=== PATIENT | male | born 1950 | race Caucasian/White ===

== ENCOUNTER 2023-10-18 10:25 | Emergency (ER) | payer MEDICARE, OTHER, SELFPAY ==
[2023-10-18 10:27] VITALS: BP 127/82
[2023-10-18 11:13] VITALS: BP 139/98; BMI 24.6
[2023-10-18 11:23] LABS: % Basophils 0.3 % (0-2); % Eosinophils 1.7 % (0-6); % Immature Granulocytes 0.2 % (0-0.5); % Lymphocytes 25.5 % (20.5-51.1); % Monocytes 10.3 % (1.7-9.3); Absolute Eosinophils 0.1 10^3/uL (0-0.7); Absolute Lymphocytes 1.5 10^3/uL (1.2-3.4); Absolute Monocytes 0.6 10^3/uL (0.1-0.6); Absolute Neutrophils 3.7 10^3/uL (1.4-6.5); Hematocrit 41.6 % (39.0-52.0); Hemoglobin 14.8 g/dL (13.0-18.0); Mean Corp Hgb Conc. 35.6 g/dL (33.0-37.0); Mean Corpuscular Hgb 29.8 pg (27.0-31.0); Mean Corpuscular Volume 83.9 fL (80.0-94.0); Mean Platelet Volume 9.8 fL (7.4-10.4); Nucleated Red Blood Cells % 0 % (-); Platelet Count 244 10^3/uL (130-400); Red Blood Cell Count 4.96 10^6/uL (4.70-6.10)
[2023-10-18 11:39] LABS: ALT (SGPT) 24 U/L (0-50); AST (SGOT) 29 U/L (17-59); Albumin 4.4 g/dl (3.5-5.0); Alkaline Phosphatase 50 U/L (38-126); Blood Urea Nitrogen 20 mg/dl (9-20); Calcium 9.6 mg/dl (8.4-10.2); Carbon Dioxide 23 mmol/L (22-30); Chloride 107 mmol/L (98-107); Estimated Creatinine Clearance 60 ml/min; Glucose 106 mg/dl (70-99); Lipase 81 U/L (23-300); Potassium 4.4 mmol/L (3.5-5.1); Sodium 138 mmol/L (135-145); Total Bilirubin 1.6 mg/dl (0.2-1.3); Total Protein 7.4 g/dl (6.3-8.2); eGFR > 60.00
--- NOTE | 2023-10-18 12:22 | ED.GENMED ---
History of Present Illness
General
Chief Complaint: Abdominal Pain
Source: patient and spouse
Exam Limitations: none
Time Seen by Provider: 10/18/23 11:06
Nursing documentation reviewed up to this point in time: agreed with
Travel History
Have you had any contact with someone who has COVID-19?: No
Do you have any symptoms of coronavirus? Fever > 100 degrees, chills, cough, shortness of breath, sore throat, loss of taste or smell, muscle aches, or headache?: No
History of Present Illness
History of Present Illness:
73-year-old male with a past medical history of anxiety, BPH who presents to the emergency department for evaluation of abdominal pain. Patient reports onset of symptoms 5 days ago they have been essentially constant since that time--they resolved
for 24 hours yesterday before returning this morning. He reports pain in the epigastric region that does not radiate. Associated with nausea and a few episodes of vomiting over the past few days. He says he has had frequent burping/belching. He
denies any diarrhea or constipation, last bowel movement was this morning and normal. He has not had any dysuria, hematuria, change in urinary frequency. Denies any back or flank pain. He denies any chest pain or shortness of breath. He denies
similar symptoms in the past. He denies any prior history of abdominal surgeries.
Review of Systems
Review of Systems
All Other Systems: ROS reviewed and negative except as documented in HPI and ROS
Constitutional: Denies fever or chills
Respiratory: Denies cough or trouble breathing
Cardiac: Denies chest pain or palpitations
ABD/GI: Reports abdominal pain, nausea and vomiting; Denies diarrhea or constipated
: Denies dysuria, frequency, flank pain or bleeding
Musculoskeletal: Denies neck pain or back pain
Neurological: Denies dizzy, headache, weakness or numbness
Phy Exam
Physical Exam
Physical Exam:
General: Awake, alert, oriented x3; no acute distress
Head: Normocephalic, atraumatic
Eyes: Conjunctiva normal, sclera anicteric
Throat: Airway intact, handling secretions
Neck: Trachea midline, supple without meningismus
Lungs: Clear to auscultation bilaterally, no wheezing, rales, rhonchi
Heart: Regular rate and rhythm, no murmurs, gallops, or rubs
Abd: Soft, non distended, minimally tender in the epigastric region
Back: No CVA tenderness
Neuro: Cranial nerves grossly intact, speech fluid
Skin: no rash
Extremities: No edema in extremities, equal pulses in all extremities
Scores
Heart Failure Risk
Heart Failure Risk Score: Not Applicable
Heart Score for Chest Pain Patients
STEMI patient?: Not applicable
Withdrawal Assessment of Alcohol
Withdrawal Assessment Completed?: Not applicable
Course
Orders/Labs/Results
Orders:
Orders
10/18/23 11:10
CT Abd/pelvis W Iv Cont Urgent
Comment:
Reason For Exam: epigastric pain with nausea and vomiting
Urinalysis Reflex To Culture Urgent
10/18/23 11:15
Complete Blood Count/With Diff Urgent
Comprehensive Metabolic Panel Urgent
Lipase Urgent
10/18/23 12:23
Electrocardiogram (*1) Urgent
Reason for Study: Abdominal Pain
EKG- Treatment ONCE
10/18/23 12:31
Troponin I Urgent
Abnormal Lab Results
10/18/23
11:15
Monocytes % 10.3 H %
(1.7-9.3)
Glucose 106 H mg/dl
(70-99)
Total Bilirubin 1.6 H mg/dl
(0.2-1.3)
10/18/23 11:15
10/18/23 11:15
Vital Signs
Initial and Last Documented VS:
Initial Vital Signs
Temp Pulse Resp BP Pulse Ox
36.6 C 85 22 127/82 99
10/18/23 10:27 10/18/23 10:27 10/18/23 10:27 10/18/23 10:27 10/18/23 10:27
Last Documented Vital Signs
Temp Pulse Resp BP Pulse Ox
36.6 C 70 16 139/98 98
10/18/23 10:27 10/18/23 11:13 10/18/23 11:13 10/18/23 11:13 10/18/23 11:13
MDM/Problems Addressed
Differential Diagnosis Includes:
Gastritis, PUD, cholelithiasis, cholecystitis, pancreatitis, enteritis, nephrolithiasis less likely, anginal equivalent less likely
MDM/Problems Addressed:
73-year-old male presents for evaluation of epigastric abdominal pain associate with nausea and vomiting and increased belching over the past few days. His vital signs are normal. Exam as above. Plan to place an IV check labs including a CBC and
a CMP, lipase. Will check EKG and troponin in an abundance of caution although low suspicion for angina/ACS. Will send for a CT of the abdomen pelvis. Will monitor closely reassess after the above.
Initial labs reviewed: CBC and CMP unremarkable, lipase normal. Awaiting results of CT and troponin.
Patient's troponin is undetectable and with symptoms for the past few days consistently this is sufficient to rule out acute MO. Awaiting results of CT.
CT abdomen pelvis shows signs concerning for malignancy�solid mass adjacent to the right small bowel mesentery. He has no known history of cancer. Informed patient and of this concerning finding. Discussed with oncology to facilitate
follow-up they will call first thing Saturday morning to make an appointment. I question whether this is truly causing the symptoms or simply an incidental finding�he does have a small hiatal hernia which would predispose to GERD symptoms. He
actually has an appointment scheduled with a GI doctor on Saturday and I encouraged him to keep this. Will start him on a PPI and prescribe Zofran as needed for nausea. Patient and feel comfortable with this plan. We spoke about return
precautions and all questions were answered.
*Radiology
Radiology exam reviewed: radiology read reviewed
*Pulse Oximetry
Patient hypoxic: no
*EKG
Interpreted by ED Provider?: Yes
Heart Rate: 59
Rate: bradycardiac
Rhythm: sinus
[place]: normal axis
Interval: normal interval
QRS Pattern: normal QRS
Ischemia: no ischemia
*Critical Care Note
Total Time (30-74mins, 75-104mins- exclusive of procedures): Not Applicable
Data Reviewed
Source: patient and spouse
ED Attending Note
-
Portions of this chart may have been created with voice recognition software.� Occasional wrong word or��sound alike� substitutions may have occurred due to the inherent limitations of voice recognition software.
Discharge Plan
Departure
Patient Disposition: Home (Routine Discharge)
Date of Disposition: 10/18/23
Time of Disposition: 14:02
Patient with high blood pressure during this ER visit?: No
Discharge Problem:
Mesenteric mass, Abdominal pain, Nausea & vomiting
Instructions: Abdominal Pain, Adult ED, Nausea and Vomiting, Adult ED
Prescriptions:
New
ondansetron 4 mg tablet,disintegrating
4 mg PO TIDPRN PRN (Reason: nausea/vomiting) Qty: 20 0RF
pantoprazole [Protonix] 40 mg tablet,delayed release (DR/EC)
40 mg PO DAILY Qty: 30 0RF
Referrals:
Roby Rodriguez MD [Family Provider] -
Andrey Sandoval MD [Active] - Call in 1-3 days for appt (Oncologist)
Activity Restrictions/Additional Instructions:
You should follow-up as scheduled with your sap business objects consultant on Saturday. You should receive a call from the oncologist on Saturday to schedule an appointment but if you do not hear from them by them by around noon on Saturday you should call the
number provided. You can take Zofran as needed for nausea. You should take the pantoprazole as prescribed which should help with your belching and abdominal discomfort. You should try to stick to a bland diet to help with your pain and nausea.
If you feel things are worsening you should return to the emergency room.
Thank you for visiting the Emergency Department at [facility].
1. Please schedule a follow up appointment as directed. Call first thing tomorrow morning to make an appointment.
2. If indicated, please take your medications as instructed and indicated on discharge paperwork.
3. If any of your symptoms do not improve, or persist, or become more severe within 6-12 hours, please return to the emergency department for further care.
4. Please return to the emergency department if you develop a headache, neck pain/stiffness, fever greater than 100.4F, chest pain, shortness of breath, persistent nausea, vomiting, slurred speech, difficulty walking, numbness/tingling, weakness,
signs of infection or any other symptoms that are worrisome to you.
Please call [phone] if you have any questions.
Interventions
Interventions:
*Risk Screen - Suicide Last Done: 10/18/23 11:12
*General Assessment Last Done: 10/18/23 10:31
*Neglect/Abuse Screening Last Done: 10/18/23 11:12
ED- Fall Risk Assessment Last Done: 10/18/23 11:12
*ED COVID-19 Vaccine History Last Done: 10/18/23 10:31
YY-Zwwoqs-Yzuwswtaqv Assessment Last Done: 10/18/23 11:12
Discharge Date and Time
Print Language: SINGAPOREAN
[2023-10-18 13:03] LABS: Troponin I < 0.012 ng/ml
== END 2023-10-18 14:32 | disposition home or self-care (01) ==
LOC: EMR 10:25
PROVIDERS: EMERGENCY PHYSICIAN Emergency Medicine; FAMILY PHYSICIAN Family Medicine
DX: K63.9 Disease of intestine, unspecified (principal); R10.13 Epigastric pain; R11.2 Nausea with vomiting, unspecified; F41.9 Anxiety disorder, unspecified; N40.0 Benign prostatic hyperplasia without lower urinary tract symptoms
CPT/HCPCS: 99285; 74177; 80053; 83690; 84484; 85025; 93005; Q9967

== ENCOUNTER → 2023-10-29 13:33 | Outpatient (REF) | payer MEDICARE, OTHER, SELFPAY | LOC: RAD 13:33 | PROVIDERS: ATTENDING PHYSICIAN Internal Medicine Hematology & Oncology; FAMILY PHYSICIAN Family Medicine | DX: R93.89 Abnormal findings on diagnostic imaging of other specified body structures (principal) | CPT/HCPCS: 71260; Q9967 ==

== ENCOUNTER 2023-11-08 10:09 | Inpatient (IN) | payer MEDICARE, OTHER, SELFPAY ==
--- NOTE | 2023-11-04 14:00 | PTCARENOTE ---
Dr. Palacios reviewed abnormal EKG from 10/18/23 that's to be used for upcoming surgery. He stated pt will need a cardiac clearance. Fiona in Dr. Hurtado's office made aware.
[2023-11-08] VITALS (17 sets, daily range): BP systolic 93–146; BP diastolic 60–88; BMI 25.2
--- NOTE | 2023-11-08 10:50 | CHAP ---
Pre-surgery Emotional and Spiritual support provided. Prayers shared. Request for Holy Communion on Saturday will be placed on our list.
[2023-11-08] MEDS: ENTEREG 12 MG PO (10:51)
[2023-11-08] MEDS: NORMOSOL-R 1000 IV (10:51)
[2023-11-08] MEDS: TYLENOL 1000 MG PO (10:51)
--- NOTE | 2023-11-08 11:26 | W.SUR.PREOP ---
Pre-Operative Surgical Note
-
I have examined this patient prior to the performance of the scheduled procedure.
The patient's condition is unchanged from the time of the current History and
Physical and the patient is able to undergo the scheduled procedure.
--- NOTE | 2023-11-08 16:27 | SUR.PHASEI ---
REc'd sleepy in bed with HOB elevated midfowlers, oriented x 3 by RN, pt very sleepy, airway removed jeanette well, now loudly snoring
--- NOTE | 2023-11-08 16:32 | SUR.PHASEI ---
Assessment unchanged, argueta to BSD, cl nestor urine
--- NOTE | 2023-11-08 16:34 | W.IMMPOSTOP ---
Addendum entered and electronically signed by Pavan Hurtado MD 11/08/23 17:08:
The assistance of Esperanza Vega was required due to the complexity of the procedure. During the procedure Esperanza Vega assisted with retraction, resection, and closure of the incision sites.
#[id number]
Original Note:
Surgical Immed Post Op Note
-
Primary Surgeon: Genesis
Assisting Surgeon: Esperanza Vega PA-c
Pre-op Diagnosis: Mesenteric Mass
Post-op Diagnosis: TI mass with mesenteric mass
Procedure Performed: Laparoscopic Right Hemicolectomy
Anesthesia Type: GETA + 0.25% Marcaine
Specimen / Cultures: right hemicolectomy
Estimated Blood Loss: 50mL
Complications: none immediate
Operative Findings: Small bowel mass palpated/identified at the terminal ileum. Mesenteric mass located at base of ileocolic pedicle with surrounding desmoplastic reaction adjacent to 3rd portion of the duodenum but grossly negative margins
obtained with resection. No additional adenopathy or masses identifies. High ligation of IC pedicle taken with endo SHAUNA stapler. Stapled side to side ileo colonic anastomosis at hepatic flexure.
--- NOTE | 2023-11-08 16:47 | SUR.PHASEI ---
Arouses to name, re oriented, vss, jeanette n/c well
--- NOTE | 2023-11-08 17:02 | SUR.PHASEI ---
Drowsy, vss, awaiting room assignment
--- NOTE | 2023-11-08 17:21 | SUR.PHASEI ---
Arouses easily, vss, denies c/o
--- NOTE | 2023-11-08 17:32 | SUR.PHASEI ---
More alert, denies c/o, vss, awaiting room, Dr Mendez in
[2023-11-08] MEDS: NSS 1000 IV (20:32)
[2023-11-08] MEDS: REFRESH EYE DROPS (PF) 1 DROPS OPHTH (20:33)
[2023-11-09] MEDS: OFIRMEV 100 IV ×4 (00:01→20:54)
[2023-11-09] MEDS: NSS 1000 IV (03:18)
[2023-11-09 03:30] VITALS: BP 125/72
[2023-11-09 07:00] VITALS: BP 117/70
[2023-11-09 08:10] LABS: Hemoglobin 11.8 g/dL (13.0-18.0); Mean Corp Hgb Conc. 32.8 g/dL (33.0-37.0); Mean Corpuscular Hgb 29.4 pg (27.0-31.0); Mean Corpuscular Volume 89.6 fL (80.0-94.0); Mean Platelet Volume 9.8 fL (7.4-10.4); Platelet Count 190 10^3/uL (130-400); Red Blood Cell Count 4.02 10^6/uL (4.70-6.10); Red Cell Dist. Width 13.1 % (11.5-14.5); White Blood Cell Count 9.5 10^3/uL (4.8-10.8)
--- NOTE | 2023-11-09 08:25 | W.PN.GS2 ---
Today's Communication / Plan
-
Clears, DC Craft, out of bed and ambulate today.
Assessment / Plan
-
This is a 73-year-old male status post a laparoscopic right hemicolectomy for mass at the terminal ileum with an associated mesenteric mass. Doing well, expected postoperative course.
Okay for clears. Will will await return of bowel function before advancing diet.
Will DC Craft catheter today.
On Protonix, Lovenox daily for prophylaxis.
Entereg, Zofran
Tamsulosin.
Tylenol and Dilaudid for pain control
Time Spent
Total Time Spent with Patient (in minutes): 10
Subjective Data
-
Date of Service: November 09, 2023
Interval Events:
No acute events overnight. Slept well. Pain Controlled. Denies Nausea/Vomiting, -bowel function.
Objective Data
-
Intake and Output
11/08/23 11/09/23 11/10/23
06:59 06:59 06:59
Intake Total 1640 / 1640
Output Total 1870 / 1870
Balance -230 / -230
Intake:
IV fluids (Total) 1640 / 1640
Normosol 200 / 200
Output:
Urine, Craft 1500 / 1500
Urine, Voided 370 / 370
Vital Signs
Temp Pulse Resp BP Pulse Ox
98.5 F 73 16 125/72 98
11/09/23 03:30 11/09/23 03:30 11/09/23 03:30 11/09/23 03:30 11/09/23 03:30
Lab Results
11/09/23 07:23
Physical Exam
-
GENERAL/NEURO: Awake, Alert, no distress
CHEST: Unlabored breathing on RA
ABDOMEN: Soft, Non-Tender, Non-Distended, incisions clean dry and intact.
[2023-11-09 08:27] LABS: Blood Urea Nitrogen 20 mg/dl (9-20); Calcium 7.8 mg/dl (8.4-10.2); Carbon Dioxide 24 mmol/L (22-30); Chloride 106 mmol/L (98-107); Estimated Creatinine Clearance 63 ml/min; Glucose 115 mg/dl (70-99); Sodium 134 mmol/L (135-145); eGFR > 60.00
[2023-11-09] MEDS: ENTEREG 12 MG PO ×2 (09:54→20:15)
[2023-11-09] MEDS: FLOMAX 0.400000000000000022 MG PO (09:54)
[2023-11-09] MEDS: LEXAPRO 20 MG PO (09:54)
[2023-11-09] MEDS: PROTONIX IV 40 MG IV (09:55)
[2023-11-09] MEDS: NSS (PRESERVATIVE FREE) 10 ML IV (09:55)
--- NOTE | 2023-11-09 11:10 | CM ---
CM met with pt and spouse bedside, neighbors were also bedside
They reside in a [place] with 7-8 [place]
Pt sleeps on the 1st floor in a recline for the past few years
13 steps up to full bath
Pt notes independence with his ADLs
Denies use of DMEs and denies food insecurities
PCP- Roby Rodriguez
Rx- [facility], Jamie
POD#1 lap R. hemicolectomy
CM will continue to follow pt for dc planning
Discharge Disposition- home, no needs anticipated
[2023-11-09 15:22] VITALS: BP 122/75
[2023-11-09] MEDS: NSS IV ×2 (17:19→17:21)
[2023-11-09] MEDS: LOVENOX 40 MG SC (18:38)
--- NOTE | 2023-11-09 19:30 | PTCARENOTE ---
IV maintenance fluids d/c during dayshift due to pt request. Pt took flomax & the N/S was going at 120mL/hr causing frequent urination. I asked pt about resuming IV fluids, but he did not want to he said it was disruptive with vistors & would make
it difficult to sleep because of the need for frequent urination. Pt on Clear Diet & tolerating it well.
[2023-11-09 23:30] VITALS: BP 118/73
[2023-11-10] MEDS: OFIRMEV 100 IV (04:40)
[2023-11-10 05:53] LABS: Hematocrit 35.8 % (39.0-52.0); Hemoglobin 12.2 g/dL (13.0-18.0); Mean Corp Hgb Conc. 34.1 g/dL (33.0-37.0); Mean Corpuscular Volume 88.2 fL (80.0-94.0); Mean Platelet Volume 10.2 fL (7.4-10.4); Platelet Count 179 10^3/uL (130-400); Red Blood Cell Count 4.06 10^6/uL (4.70-6.10); Red Cell Dist. Width 13.2 % (11.5-14.5); White Blood Cell Count 8.5 10^3/uL (4.8-10.8)
[2023-11-10 06:17] LABS: Blood Urea Nitrogen 16 mg/dl (9-20); Calcium 8.4 mg/dl (8.4-10.2); Carbon Dioxide 25 mmol/L (22-30); Chloride 107 mmol/L (98-107); Estimated Creatinine Clearance 69 ml/min; Glucose 99 mg/dl (70-99); Potassium 4.5 mmol/L (3.5-5.1); Sodium 138 mmol/L (135-145); eGFR > 60.00
[2023-11-10 07:20] VITALS: BP 118/75
[2023-11-10] MEDS: NSS (PRESERVATIVE FREE) 10 ML IV (09:14)
[2023-11-10] MEDS: PROTONIX IV 40 MG IV (09:14)
[2023-11-10] MEDS: FLOMAX 0.400000000000000022 MG PO (09:14)
[2023-11-10] MEDS: LEXAPRO 20 MG PO (09:15)
[2023-11-10] MEDS: ENTEREG 12 MG PO ×2 (09:15→20:41)
[2023-11-10] MEDS: TYLENOL 1000 MG PO (09:15)
--- NOTE | 2023-11-10 11:03 | W.PN.GS2 ---
Today's Communication / Plan
-
Dispo planning
Assessment / Plan
-
This is a 73-year-old male status post a laparoscopic right hemicolectomy for mass at the terminal ileum with an associated mesenteric mass. Doing well, expected postoperative course.
Will DC home later today if he tolerates a low residue diet.
Time Spent
Total Time Spent with Patient (in minutes): 10
Subjective Data
-
Date of Service: November 10, 2023
Interval Events:
No acute events overnight. Slept well. Pain Controlled. Denies Nausea/Vomiting, +bowel function. Tolerating diet.
Objective Data
-
Intake and Output
11/09/23 11/10/23 11/11/23
06:59 06:59 06:59
Intake Total 1640 / 1640 1280 / 1280
Output Total 1870 / 1870 2225 / 2225
Balance -230 / -230 -945 / -945
Intake:
Oral fluids 1280 / 1280
IV fluids (Total) 1640 / 1640
Normosol 200 / 200
Output:
Urine, Craft 1500 / 1500
Urine, Voided 370 / 370 2225 / 2225
Vital Signs
Temp Pulse Resp BP Pulse Ox
98.0 F 77 17 118/75 97
11/10/23 07:20 11/10/23 07:20 11/10/23 07:20 11/10/23 07:20 11/10/23 07:20
Lab Results
11/10/23 05:24
11/10/23 05:24
Calcium 8.4 mg/dl (8.4-10.2) 11/10/23 05:24
Physical Exam
-
GENERAL/NEURO: Awake, Alert, no distress
CHEST: Unlabored breathing on RA
ABDOMEN: Soft, Non-Tender, Non-Distended, incisions clean dry and intact.
--- NOTE | 2023-11-10 11:49 | CM ---
CM reviewed chart- anticipate dc later today pending toleration of diet
Bedside meeting with pt- he notes he does not feel ready for dc today
IMM verbally completed- copy provided
Discharge Dosposition- home, no needs- family transport
[2023-11-10] MEDS: TORADOL 10 MG IV (15:02)
[2023-11-10 15:05] VITALS: BP 143/88
--- NOTE | 2023-11-10 16:26 | W.PN.UPDATE ---
Update Note
Progress Note Update
S: Patient seen and examined at bedside with family. Questions addresssed
B: Some worsening bloating after eating LRD with belching. Urinary frequency improved. Pain not worsened, manageable. Has been able to walk in the hallways. Still passing flatus.
A/R: Diet changed full liquids, he would like to continue having sherbet, urged patient to go slowly. If nausea/vomiting develop will make NPO.
[2023-11-10] MEDS: LOVENOX 40 MG SC (16:58)
--- NOTE | 2023-11-10 22:00 | PTCARENOTE ---
pt had 2 small, liquid bloody bm. will monitor
[2023-11-10] MEDS: ZOFRAN 4 MG IV (22:39)
[2023-11-10 22:50] VITALS: BP 154/92
--- NOTE | 2023-11-10 22:50 | PTCARENOTE ---
pt having bloody watery stools x3. 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 pt became nauseas and vomited small amount. administered prn zofran- see mar. pt felt a little diaphoretic with the vomiting but said it subsided. pt resting in bed states he feels better.
vss.
[2023-11-11] MEDS: TORADOL 10 MG IV (06:01)
[2023-11-11 06:04] LABS: Hematocrit 35.1 % (39.0-52.0)
[2023-11-11 07:10] VITALS: BP 107/71
[2023-11-11] MEDS: FLOMAX 0.400000000000000022 MG PO (08:33)
[2023-11-11] MEDS: PROTONIX IV 40 MG IV (08:34)
[2023-11-11] MEDS: NSS (PRESERVATIVE FREE) 10 ML IV (08:34)
[2023-11-11] MEDS: LEXAPRO 20 MG PO (08:34)
--- NOTE | 2023-11-11 09:48 | W.PN.GS2 ---
Today's Communication / Plan
-
NPO/IVF
Assessment / Plan
-
73-year-old male POD #3 laparoscopic right hemicolectomy for mass at the terminal ileum with an associated mesenteric mass.
AFVSS
h/h stable
?developing ileus, +n/v/distention. bloody stool x1 this am, still passing flatus
--Keep NPO with sips of clears
--If vomiting recurs/persists will place NGT
--IVF while NPO
--Multimodal analgesics
--OOB/Ambulate
--c/w PO home meds
--VTE ppx with lovenox/scd's
Subjective Data
-
Date of Service: November 11, 2023
Patient seen and examined at bedside with Dr. Singh. Vomiting and nausea overnight. Feels a little better today. Passed a bloody BM with flatus. No worsening pain.
Objective Data
-
Intake and Output
11/10/23 11/11/23 11/12/23
06:59 06:59 06:59
Intake Total 1280 / 1280 1120 / 1120
Output Total 2225 / 2225 500 / 500
Balance -945 / -945 620 / 620
Intake:
Oral fluids 1280 / 1280 1120 / 1120
Output:
Emesis 100 / 100
Urine, Voided 2225 / 2225 400 / 400
Other:
Number of approximated MODERATE 4
amounts of urine
Number of unmeasured liquid
stools
Rectum 3
Vital Signs
Temp Pulse Resp BP Pulse Ox
97.8 F 71 18 107/71 97
11/11/23 07:10 11/11/23 07:10 11/11/23 07:10 11/11/23 07:10 11/11/23 07:10
Lab Results
11/11/23 05:57
11/10/23 05:24
Calcium 8.4 mg/dl (8.4-10.2) 11/10/23 05:24
Physical Exam
-
GENERAL/NEURO: Awake, Alert, no distress
CHEST: Unlabored breathing on RA
ABDOMEN: Soft, Incisional tenderness, moderately distended, incisions clean dry and intact.
[2023-11-11] MEDS: ENTEREG PO (09:58)
[2023-11-11] MEDS: NORMOSOL-R 1000 IV ×2 (10:43→21:52)
[2023-11-11 14:06] VITALS: BP 109/68
--- NOTE | 2023-11-11 14:07 | PTCARENOTE ---
Pt's came out to nurses station and told RN that her felt dizzy. RN went in to take patients vital signs and pt denied he felt dizzy. Bp was 109/68 and HR was 75. Pt told RN he was on his 3rd bloody bowel movement. RN let SALES DEPARTMENT SUPERVISOR know and
now h/h is ordered.
[2023-11-11 14:30] VITALS: BP 94/61
[2023-11-11 14:31] VITALS: BP 77/51
[2023-11-11 15:16] VITALS: BP 105/70
[2023-11-11 15:16] LABS: Hematocrit 33.1 % (39.0-52.0); Hemoglobin 11.3 g/dL (13.0-18.0); Mean Corp Hgb Conc. 34.1 g/dL (33.0-37.0); Mean Corpuscular Hgb 29.8 pg (27.0-31.0); Mean Corpuscular Volume 87.3 fL (80.0-94.0); Platelet Count 205 10^3/uL (130-400); Red Blood Cell Count 3.79 10^6/uL (4.70-6.10); Red Cell Dist. Width 13.2 % (11.5-14.5); White Blood Cell Count 7.3 10^3/uL (4.8-10.8)
[2023-11-11 15:36] LABS: Blood Urea Nitrogen 21 mg/dl (9-20); Calcium 8.9 mg/dl (8.4-10.2); Carbon Dioxide 25 mmol/L (22-30); Chloride 106 mmol/L (98-107); Estimated Creatinine Clearance 49 ml/min; Glucose 106 mg/dl (70-99); Potassium 4.3 mmol/L (3.5-5.1); Sodium 137 mmol/L (135-145); eGFR 53.07
--- NOTE | 2023-11-11 15:53 | CM ---
NPO,sips of clears, IVF, NGT if vomiting persists. Discharge Plan of Care: Anticipate Home with no needs.
--- NOTE | 2023-11-11 16:05 | W.PN.UPDATE ---
Update Note
Progress Note Update
S/B: Notified by nursing that pt passing bloody stools x3 (small), dizziness with ambulation and noted postural hypotension (94/61 sitting to 77/51 with standing)
A: Some bloody stools expected post op. Mild acute anemia noted, but not a significant drop. N/V resolved with bowel rest. Distention improving.
P: Will hold Lovenox and Toradol. Given postural hypotension, increased IVF to 125ml/hr. Continue NPO with sips. Await more robust return of bowel function (flatus) prior to advancing diet. Check AM labs.
--- NOTE | 2023-11-11 17:25 | PTCARENOTE ---
Patient re-check h/h stable. Vital signs sitting to standing are orthostatic and PATTERN KEEPER was made aware. Pt instructed to call for RN/PCT to walk with him from now on given low blood pressure when standing. IVF increased to 125 from 75.
[2023-11-11 23:00] VITALS: BP 99/66
[2023-11-12] VITALS (7 sets, daily range): BP systolic 80–127; BP diastolic 55–71
[2023-11-12 04:46] LABS: Hemoglobin 10.9 g/dL (13.0-18.0); Mean Corp Hgb Conc. 34.1 g/dL (33.0-37.0); Mean Corpuscular Hgb 30.3 pg (27.0-31.0); Mean Corpuscular Volume 88.9 fL (80.0-94.0); Platelet Count 180 10^3/uL (130-400); Red Cell Dist. Width 13.1 % (11.5-14.5); White Blood Cell Count 6.7 10^3/uL (4.8-10.8)
[2023-11-12] MEDS: NORMOSOL-R 1000 IV ×3 (05:01→23:05)
--- NOTE | 2023-11-12 07:09 | W.PN.GS2 ---
Today's Communication / Plan
-
`
Assessment / Plan
-
Assessment: 73-year-old male POD #4 laparoscopic right hemicolectomy for mass at the terminal ileum with an associated mesenteric mass.
AF VSS but relative hypotension
acute blood loss anemia secondary to operative blood loss and now probable post op anastomotic bleed (appears to have slowed or stopped)
hgb 10.9 this AM from 11.4 yesterday afternoon - no further bloody BMs since
hypotension likely reflective of hypovolemia as also indicated by bump in Cr
Plan: 1L NSS bolus over 2hrs and continue normosol at 125ml/hr
clear liquid diet
Lovenox was held yesterday PM and Toradol stopped d/t presumed anastomosis bleeding
Entereg stopped yesterday with return of GI function
continue PRN analgesics
OOBTC/Ambulate as long as no dizziness
PO home meds
VTE ppx with scd's and ambulation
Subjective Data
-
Date of Service: November 12, 2023
pt seen and examined
passing flatus
last BM yesterday afternoon - bloody, non reported by pt overnight
no dizziness/CP/SOB lying in bed this AM
offer no additional concerns/complaints
Objective Data
-
Intake and Output
11/11/23 11/12/23 11/13/23
06:59 06:59 06:59
Intake Total 1120 / 1120 2019
Output Total 500 / 500 400 / 400
Balance 620 / 620 1620 / 1620
Intake:
Oral fluids 1120 / 1120
IV fluids (Total) 1999
Output:
Emesis 100 / 100
Urine, Voided 400 / 400 400 / 400
Other:
Number of approximated MODERATE 4 4
amounts of urine
Number of unmeasured liquid
stools
Rectum 3 3
Vital Signs
Temp Pulse Resp BP Pulse Ox
98.7 F 83 16 99/66 98
11/11/23 23:00 11/11/23 23:00 11/11/23 23:00 11/11/23 23:00 11/11/23 23:00
Lab Results
11/12/23 04:31
11/11/23 14:55
Calcium 8.9 mg/dl (8.4-10.2) 11/11/23 14:55
Physical Exam
-
NAD AAOx3
ABD: softly protuberant, minimal incisional tenderness, incisions with glue dressings
[2023-11-12] MEDS: NSS 1000 IV (07:10)
[2023-11-12] MEDS: FLOMAX 0.400000000000000022 MG PO (07:52)
[2023-11-12] MEDS: PROTONIX IV 40 MG IV (07:52)
[2023-11-12] MEDS: NSS (PRESERVATIVE FREE) 10 ML IV (07:52)
[2023-11-12] MEDS: LEXAPRO 20 MG PO (07:52)
[2023-11-12 10:54] LABS: Troponin I 0.055 ng/ml
--- NOTE | 2023-11-12 12:06 | W.PN.CD ---
Addendum entered and electronically signed by Mildred Santizo MD 11/12/23 13:43:
I saw and examined the patient.
The PROTEIN CHEMIST's note was reviewed and I agree with the note.
Comment: He has no sense of arrhythmia when in the rhythm. His C2V is a 1. Given recent bleeding issues, he has risk of bleeding >risk of stroke. He is irreg irreg when I examine him, lungs CTA. By the time he got to echo, he was back in NSR. He
had a normal ef, but his rv is mildly dilated with apical HK, given new af, surgery etc, would need to rule out PE. However, cr bumped yesterday and is still pending. If still elevated can start with LE dopplers and consider v/q scan. Otherwise if
improved with get CTPE.
d/w Dr Hurtado.
Original Note:
Today's Communication / Plan
-
Telemetry, follow heart rate
Start metoprolol to tartrate to 6.25 mg every 6 hours
Echocardiogram
Impression / Plan
-
Background: 73M presented for a laparoscopic right hemicolectomy for terminal ileum mesenteric mass with Dr. Hurtado 11/08/2023. He was found to have atrial fibrillation with rapid ventricular response on POD #4.
Solar Electric Installer: Dr. Frias
Atrial fibrillation with rapid ventricular response
-Rate control with metoprolol tartrate
-Oral Anticoagulation: None given issues with bleeding
-[id number]: score 1 (age 65-74)
Orthostatic hypotension
-He was symptomatic yesterday, reports significant improvement today
Laparoscopic right hemicolectomy, mesenteric mass at the terminal ileum 11/08/[address] Hurtado - care per general surgery
Acute blood loss anemia, secondary to operative blood loss with probable postop anastomotic bleed - transfusion at the discretion of primary service
Subjective:
Denies chest pain, palpitations, and dizziness.
Data:
EKG 11/12/2023: Atrial fibrillation with rapid ventricular response, rate 162 bpm
Physical Exam
Vital Signs/Labs
Vital Signs
Temp Pulse Resp BP Pulse Ox
97.4 F 90 18 103/68 93
11/12/23 06:58 11/12/23 10:25 11/12/23 10:25 11/12/23 10:25 11/12/23 07:40
LAB Results
11/12/23
10:07
Troponin I 0.055 H*
Physical Exam
Constitutional: No acute distress and Comfortable
EENT: Anicteric and Moist mucous membranes
Cardiovascular: Rhythm/rate is irregular, S1S2 is normal and Murmur/rub/gallop absent
Respiratory: Respiratory effort normal and Lungs clear to auscul.
GI: Soft, Distention absent, Flat and Normal bowel sounds
Neuro/Psych: AO x 3
Other: Skin (warm and dry)
Data Reviewed
-
Date of Service: November 12, 2023
EKG: Report Reviewed by me
Echo: Ordered by me
Old Records: Reviewed
[2023-11-12] MEDS: LOPRESSOR 6.25 MG PO ×3 (13:00→23:05)
[2023-11-12 14:05] LABS: Hemoglobin 10.7 g/dL (13.0-18.0)
[2023-11-12 14:42] LABS: Blood Urea Nitrogen 20 mg/dl (9-20); Calcium 8.1 mg/dl (8.4-10.2); Carbon Dioxide 24 mmol/L (22-30); Chloride 108 mmol/L (98-107); Estimated Creatinine Clearance 58 ml/min; Glucose 113 mg/dl (70-99); Sodium 138 mmol/L (135-145); eGFR > 60.00
--- NOTE | 2023-11-12 16:13 | CM ---
Clear liquid diet, return of bowel function. Anticipate home with no needs.
[2023-11-12 16:44] LABS: Troponin I 0.047 ng/ml
[2023-11-12] MEDS: NSS 500 IV (18:22)
[2023-11-12 22:36] LABS: Troponin I 0.032 ng/ml
[2023-11-13] VITALS (7 sets, daily range): BP systolic 92–135; BP diastolic 66–78; PULSE 65; O2SAT 99
--- NOTE | 2023-11-13 03:38 | DOWNTIME ---
There was a [employer] Client Picker Box Operator Downtime on 11/13/2023 from 0100 to 11/13/2023 at 0337. Downtime documentation of patient's care, including medication administrations, has been reconciled in the electronic record per guidelines. Refer to the
patient's paper chart under the miscellaneous tab to see printed paper medication records and downtime forms.
[2023-11-13] MEDS: NORMOSOL-R 1000 IV (04:55)
[2023-11-13] MEDS: LOPRESSOR 6.25 MG PO ×2 (05:02→18:06)
--- NOTE | 2023-11-13 08:03 | W.PN.GS2 ---
Today's Communication / Plan
-
`
Assessment / Plan
-
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
AFVSS
acute blood loss anemia secondary to operative blood loss and now probable post op anastomotic bleed - resolved
post op afib with RVR - back in sinus and now normotensive as well
CT chest negative for PE
Plan: full liquid diet and advance to low residue for dinner
OOBTC/ambulate
resume flomax
cardiology assistance with care greatly appreciated
resume lovenox for VTEp
anticipating d/c home tomorrow is likely
Subjective Data
-
Date of Service: November 13, 2023
pt seen and examined
feeling better today
+fl and BMs yesterday
no nausea with clears,no bloating or distention
Objective Data
-
Intake and Output
11/12/23 11/13/23 11/14/23
06:59 06:59 06:59
Intake Total 2019 5490 / 5490
Output Total 400 / 400 1625 / 1625
Balance 1620 / 1620 3865 / 3865
Intake:
Oral fluids / 20 1740 / 1740
IV fluids (Total) 1999 3750 / 3750
Output:
Urine, Voided 400 / 400 1625 / 1625
Other:
Number of approximated MODERATE 4 3
amounts of urine
Number of unmeasured liquid
stools
Rectum 3 3
Vital Signs
Temp Pulse Resp BP Pulse Ox
97.3 F 63 18 124/72 98
11/13/23 07:00 11/13/23 07:00 11/13/23 07:00 11/13/23 07:00 11/13/23 07:00
Calcium 8.1 mg/dl (8.4-10.2) L 11/12/23 13:50
Physical Exam
-
NAD AAOx3
ABD: soft, ND, NTTP
incisions with glue dressings
[2023-11-13 08:16] LABS: Hematocrit 28.2 % (39.0-52.0); Hemoglobin 9.8 g/dL (13.0-18.0); Mean Corp Hgb Conc. 34.8 g/dL (33.0-37.0); Mean Corpuscular Hgb 30.2 pg (27.0-31.0); Mean Platelet Volume 10.4 fL (7.4-10.4); Platelet Count 170 10^3/uL (130-400); Red Blood Cell Count 3.24 10^6/uL (4.70-6.10); Red Cell Dist. Width 12.9 % (11.5-14.5); White Blood Cell Count 5.1 10^3/uL (4.8-10.8)
[2023-11-13] MEDS: NSS (PRESERVATIVE FREE) 10 ML IV (08:39)
[2023-11-13] MEDS: PROTONIX IV 40 MG IV (08:39)
[2023-11-13] MEDS: FLUSH (NSS) 2 FLUSH IV (08:39)
[2023-11-13] MEDS: LEXAPRO 20 MG PO (08:40)
[2023-11-13 08:53] LABS: Blood Urea Nitrogen 15 mg/dl (9-20); Calcium 8.3 mg/dl (8.4-10.2); Carbon Dioxide 22 mmol/L (22-30); Chloride 108 mmol/L (98-107); Estimated Creatinine Clearance 77 ml/min; Glucose 92 mg/dl (70-99); Potassium 4.3 mmol/L (3.5-5.1); Sodium 137 mmol/L (135-145); eGFR > 60.00
--- NOTE | 2023-11-13 09:48 | W.PN.CD ---
Addendum entered and electronically signed by Louis Bhandari MD 11/13/23 13:27:
I saw and examined the patient.
The SAFETY INTERN's note was reviewed and I agree with the note.
patient feels well. cardiac exam regular and lungs clear. Tele reviewed. Back insinus rhyhtm
- continue metoprolol
- will need cardiology follow up after discharge
Original Note:
Today's Communication / Plan
-
-transition from metoprolol tartrate to metoprolol succinate (orders in to start tomorrow). Add on TSH.
-Should have sleep study as OP after recovery.
Impression / Plan
-
Background: 73M presented for a laparoscopic right hemicolectomy for terminal ileum mesenteric mass with Dr. Hurtado 11/08/2023. He was found to have atrial fibrillation with rapid ventricular response on POD #4.
Patent Attorney: Dr. Frias
Atrial fibrillation with rapid ventricular response:
-now in SR
-Metoprolol tartrate started- will transition to metoprolol succinate 25 mg PO daily
-His C2V is a 1. Given recent bleeding issues, he has risk of bleeding >risk of stroke.
-echo 11/12/23: Normal left ventricular chamber size. Normal left ventricular systolic function. LV ejection fraction is 50-55% by Christianson's method of discs. Mildly dilated right ventricle with hypokinesis of the apex. Mild aortic regurgitation. No
PE was noted by CT scan. Family in room thinks he likely has sleep apnea. I recommended he get formal sleep study as OP after recovery.
-will add on TSH
-he has mildly abnormal trop 0.055, which I suspect is [id number] myocardial injury related to tachycardia and hypotension, as well as surgery, anemia
Orthostatic hypotension:
-noted post-op
-now resolved
Laparoscopic right hemicolectomy, mesenteric mass at the terminal ileum 11/08/[address] Hurtado - care per general surgery:
-looks like plan is d/c tomorrow
Acute blood loss anemia, secondary to operative blood loss with probable postop anastomotic bleed - transfusion at the discretion of primary service
Subjective:
Feeling well, has no complaints
Data:
EKG 11/12/2023: Atrial fibrillation with rapid ventricular response, rate 162 bpm
Physical Exam
Vital Signs/Labs
Vital Signs
Temp Pulse Resp BP Pulse Ox
97.3 F 63 18 124/72 98
11/13/23 07:00 11/13/23 07:00 11/13/23 07:00 11/13/23 07:00 11/13/23 07:00
11/13/23 06:59
11/13/23 06:59
LAB Results
11/12/23 11/12/23 11/12/23
10:07 16:07 22:03
Troponin I 0.055 H* 0.047 H* 0.032 D
Physical Exam
Constitutional: No acute distress
EENT: Anicteric
Cardiovascular: Rhythm & rate is regular
Respiratory: Respiratory effort normal and Lungs clear to auscul.
Neuro/Psych: AO x 3
Data Reviewed
-
Date of Service: November 13, 2023
EKG: Other (SR)
Echo: Other (as above)
--- NOTE | 2023-11-13 10:44 | CM ---
Addendum entered by Cherelle Ibarra 11/13/23 13:12:
PT evaluated patient and recommends Outpatient Therapy.
Sent [place] Text to Attending and requested he write a script and leave it on the chart for nurse to give it to patient at discharge
Original Note:
Met with patient and his at bedside to discuss discharge plan; thinks would benefit with home PT. Sent a [place] Text to Attending asking for PT evaluation order
IMM benefit explained; form signed @ [phone]
Plan: discharge to home when medically stable; possibly tomorrow; CM will continue to monitor for home care needs
[2023-11-13 11:40] LABS: TSH Reflex To Free T4 3.34 uIU/ml (0.47-4.68)
[2023-11-13] MEDS: LOPRESSOR PO (12:00)
[2023-11-13] MEDS: LOVENOX 40 MG SC (18:07)
[2023-11-14 03:00] VITALS: BP 121/80
[2023-11-14 06:28] LABS: Hematocrit 26.4 % (39.0-52.0); Hemoglobin 9.5 g/dL (13.0-18.0)
[2023-11-14 06:50] VITALS: BP 123/76
--- NOTE | 2023-11-14 08:05 | W.PN.CD ---
Addendum entered and electronically signed by Louis Bhandari MD 11/14/23 09:27:
I saw and examined the patient.
The FENCE SUPERVISOR's note was reviewed and I agree with the note.
remains in sinus. Tx plan as noted. Issues reviewed with Dr Hurtado.
Original Note:
Today's Communication / Plan
-
-continue Toprol XL 25 mg daily
-OP follow-up in our office- will place visit in chart
Impression / Plan
-
Background: 73M presented for a laparoscopic right hemicolectomy for terminal ileum mesenteric mass with Dr. Hurtado 11/08/2023. He was found to have atrial fibrillation with rapid ventricular response on POD #4.
[facility] Agent: Dr. Frias
Atrial fibrillation with rapid ventricular response:
-remains in SR. Continue metoprolol XL 25 mg once daily.
-His C2V is a 1. Given recent bleeding issues, he has risk of bleeding >risk of stroke.
-echo 11/12/23: Normal left ventricular chamber size. Normal left ventricular systolic function. LV ejection fraction is 50-55% by Christianson's method of discs. Mildly dilated right ventricle with hypokinesis of the apex. Mild aortic regurgitation. No
PE was noted by CT scan. Family in room thinks he likely has sleep apnea. I recommended he get formal sleep study as OP after recovery.
-TSH normal
-he has mildly abnormal trop 0.055, which I suspect is [id number] myocardial injury related to tachycardia and hypotension, as well as surgery, anemia. Denies CP.
Orthostatic hypotension:
-noted post-op
-now resolved
Laparoscopic right hemicolectomy, mesenteric mass at the terminal ileum 11/08/[address] Hurtado - care per general surgery:
-looks like plan is d/c today
Acute blood loss anemia, secondary to operative blood loss with probable postop anastomotic bleed - transfusion at the discretion of primary service
Subjective:
Feels well, no complaints, looks good OOB to chair. Excited for possible d/c today.
Data:
EKG 11/12/2023: Atrial fibrillation with rapid ventricular response, rate 162 bpm
Physical Exam
Vital Signs/Labs
Vital Signs
Temp Pulse Resp BP Pulse Ox
98.2 F 75 16 123/76 98
11/14/23 06:50 11/14/23 06:50 11/14/23 06:50 11/14/23 06:50 11/14/23 06:50
11/14/23 05:04
11/13/23 06:59
LAB Results
11/12/23 11/12/23 11/12/23
10:07 16:07 22:03
Troponin I 0.055 H* 0.047 H* 0.032 D
Physical Exam
Constitutional: No acute distress
EENT: Anicteric
Cardiovascular: Rhythm & rate is regular
Respiratory: Respiratory effort normal and Lungs clear to auscul.
Neuro/Psych: AO x 3
Data Reviewed
-
Date of Service: November 14, 2023
EKG: Other (tele SR)
Labs: Labs Reviewed by me
--- NOTE | 2023-11-14 09:24 | W.PN.GS2 ---
Today's Communication / Plan
-
`
Assessment / Plan
-
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
AFVSS
acute blood loss anemia secondary to operative blood loss and now probable post op anastomotic bleed - resolved
post op afib with RVR - back in sinus and now normotensive as well
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 Reviewed results with patient and provided him a copy of the pathology report
Plan: Low residue diet
Stable for discharge home
Cardiology assistance with postoperative care greatly appreciated
Will reach out to patient's oncologist and update on pathology results. Will get outpatient CT PET dotatate study now that neuroendocrine tumor confirmed
Subjective Data
-
Date of Service: November 14, 2023
Patient seen and examined
Feeling well. Tolerating low residue diet.
Bowel movement overnight semiformed, no blood
No nausea
No postoperative pain
No dizziness, lightheadedness or chest pain
Objective Data
-
Intake and Output
11/13/23 11/14/23 11/15/23
06:59 06:59 06:59
Intake Total 5490 / 5490 800 / 800
Output Total 1625 / 1625
Balance 3865 / 3865 800 / 800
Intake:
Oral fluids 1740 / 1740 800 / 800
IV fluids (Total) 3750 / 3750
Output:
Urine, Voided 1625 / 1625
Other:
Number of approximated MODERATE 3 1
amounts of urine
Number of unmeasured liquid
stools
Rectum 3
Vital Signs
Temp Pulse Resp BP Pulse Ox
98.2 F 75 16 123/76 98
11/14/23 06:50 11/14/23 06:50 11/14/23 06:50 11/14/23 06:50 11/14/23 06:50
Lab Results
11/14/23 05:04
11/13/23 06:59
Calcium 8.3 mg/dl (8.4-10.2) L 11/13/23 06:59
Physical Exam
-
NAD, AAOx3
ABD: Soft, nondistended, nontender
Surgical incision sites with glue dressings, no drainage, no seromas, no open wounds
--- NOTE | 2023-11-14 09:42 | W.DS.TRANS ---
Addendum entered and electronically signed by RONDA Lopez 11/15/23 12:25:
Dictated #[id number]
Original Note:
DC Summary - Vp Purchasing
-
Discharge Instructions:
Sleep Apnea Risk Low
Discharge Diagnosis/Procedures Terminal ileal and mesenteric mass.
Laparoscopic right hemicolectomy. Postoperative
paroxysmal atrial fibrillation.
Diet Low Residue,Supplements
Additional Diets Smaller portion sizes for the first week or 2
after surgery. Avoid high fibrous foods.
Activity No strenuous activity
Driving Restrictions As prior to admission
Bathing Restrictions OK to Shower
Instructions: Low Fiber Diet
Stand-Alone Forms:
Changes to Home Medications: Yes
Discharge Medications:
DC Medications w/original date entered in [facility]
escitalopram oxalate 20 mg tablet 20 mg PO DAILY depression/anxiety 11/05/23
multivitamin 1 tab PO DAILY Supplement 11/05/23
red yeast rice 600 mg tablet 600 mg PO DAILY Supplement 11/05/23
tamsulosin 0.4 mg capsule 0.4 mg PO DAILY Urinary Issue 11/05/23
acetaminophen 500 mg tablet (Tylenol Extra Strength) 1,000 mg (2 x 500 mg) PO Q6HPRN PRN mild pain #1 tab 11/14/23
metoprolol succinate 25 mg tablet,extended release 24 hr 25 mg PO DAILY #30 tabs 11/14/23
Home Medication Changes
New medication
Metoprolol XR 25mg daily
Pending Results: No
[2023-11-14] MEDS: LEXAPRO 20 MG PO (09:47)
[2023-11-14] MEDS: TOPROL XL 25 MG PO (09:47)
[2023-11-14] MEDS: FLOMAX 0.400000000000000022 MG PO (09:47)
[2023-11-14] MEDS: PROTONIX IV 40 MG IV (09:47)
[2023-11-14] MEDS: NSS (PRESERVATIVE FREE) 10 ML IV (09:48)
[2023-11-14 11:16] VITALS: BP 125/71
--- NOTE | 2023-11-14 11:29 | CM ---
Patient has been medically cleared for discharge to home with no additional skilled services. Patient declined recommendation for outpatient PT. Patient has arranged for transport home.
== END 2023-11-14 11:52 | disposition home or self-care (01) | DRG 827 ==
LOC: 2 SOUTH 10:09
PROVIDERS: Nurse Practitioner Family; Registered Nurse; ADMITTING PHYSICIAN Surgery; FAMILY PHYSICIAN Family Medicine
PROC: 0DTF4ZZ Resection of Right Large Intestine, Percutaneous Endoscopic Approach (ICD-10-PCS; 2023-11-08)
DX: C7A.8 Other malignant neuroendocrine tumors (principal); D62 Acute posthemorrhagic anemia; C7B.8 Other secondary neuroendocrine tumors; N40.0 Benign prostatic hyperplasia without lower urinary tract symptoms; I95.1 Orthostatic hypotension; E87.6 Hypokalemia; I48.91 Unspecified atrial fibrillation; Z79.899 Other long term (current) drug therapy
CPT/HCPCS: 88309; 71275; 80048; 84443; 84484; 85014; 85018; 85027; 86850; 86900; 86901; 88341; 88342; 93005; 93306; 97162; J1335; Q9967

== ENCOUNTER → 2024-05-06 10:18 | Outpatient (REF) | payer MEDICARE, OTHER, SELFPAY | LOC: HWRAD 10:18 | PROVIDERS: ATTENDING PHYSICIAN Internal Medicine Hematology & Oncology; FAMILY PHYSICIAN Family Medicine | DX: R93.89 Abnormal findings on diagnostic imaging of other specified body structures (principal); C7A.019 Malignant carcinoid tumor of the small intestine, unspecified portion | CPT/HCPCS: 71250 ==